=== PATIENT | male | born 1955 | race Caucasian/White ===

== ENCOUNTER 2021-02-09 12:34 | Emergency (ER) | payer BC ==
--- NOTE | 2021-02-09 13:57 | EDM.PDOC ---
ED HPI GENERAL MEDICAL PROBLEM - General Chief Complaint: Neurological Problem Stated Complaint: NUMBNESS LEFT SIDE OF BODY Time Seen by Provider: 02/09/21 13:30 Source of Information: Reports: Patient History Limitations: Reports: No Limitations - History of Present Illness INITIAL COMMENTS - FREE TEXT/NARRATIVE: 65 year old male with history of hyperlipidemia and hypertension presents to the ER due to numbness. He reports that 2 days ago he noted some left neck pain, went to his chiropractor appointment and did not get any relief, then today, in the last 6-8 hours noticed a progression of the numbness down his left neck, left arm, and left leg. Reports some "issues with my balance" and decreased vision to the right eye. Denies focal weakness, recent illness, recent tick bite, or other associated symptoms. Onset: Gradual Onset Date: 02/07/21 Location: Reports: Face, Upper Extremity, Left, Lower Extremity, Left Quality: Reports: Other (numbness) Improves with: Reports: None Worsens with: Reports: None Associated Symptoms: Reports: No Other Symptoms - Related Data Allergies Allergy/AdvReac Type Severity Reaction Status Date / Time No Known Allergies Allergy Verified 02/09/21 13:09 Home Meds: Home Meds Ezetimibe [Zetia] 10 mg PO DAILY 02/09/21 [History] FLUoxetine HCl [Prozac] 20 mg PO DAILY 02/09/21 [History] Losartan/Hydrochlorothiazide [Losartan-HCTZ 100-25 MG] 1 each PO DAILY 02/09/21 [History] Pantoprazole [ProTONIX] 40 mg PO BID 02/09/21 [History] Zolpidem [Ambien] 5 mg PO BEDTIME 02/09/21 [History] amLODIPine [Norvasc] 2.5 mg PO DAILY 02/09/21 [History] atorvaSTATin [Lipitor] 80 mg PO DAILY 02/09/21 [History] rOPINIRole [Requip] 0.25 mg PO BEDTIME 02/09/21 [History] Past Medical History Cardiovascular History: Reports: High Cholesterol, Hypertension Respiratory History: Reports: Sleep Apnea Gastrointestinal History: Reports: GERD Musculoskeletal History: Reports: Back Pain, Chronic, Fracture Psychiatric History: Reports: Anxiety, Depression Oncologic (Cancer) History: Reports: Other (See Below) Other Oncologic History: eye lid ca - Past Surgical History HEENT Surgical History: Reports: Eye Surgery, Tonsillectomy GI Surgical History: Reports: Colonoscopy, EGD Social & Family History - Tobacco Use Tobacco Use Status *Q: Never Tobacco User ED ROS GENERAL - Review of Systems Review Of Systems: See Below Constitutional: Reports: No Symptoms HEENT: Reports: Other (decreased vision to right eye) Respiratory: Reports: No Symptoms Cardiovascular: Reports: No Symptoms Endocrine: Reports: No Symptoms GI/Abdominal: Reports: No Symptoms : Reports: No Symptoms Musculoskeletal: Reports: Neck Pain Skin: Reports: No Symptoms Neurological: Reports: Numbness, Tingling, Gait Disturbance. Denies: Confusion, Dizziness, Headache, Weakness, Change in Speech Psychiatric: Reports: No Symptoms Hematologic/Lymphatic: Reports: No Symptoms Immunologic: Reports: No Symptoms ED EXAM, NEURO - Physical Exam Exam: See Below Text/Narrative:: Patient is calm, alert, and oriented resting on cart. Decreased sensation to left face, left arm, and leg leg with comparative sensation test. Spray Drier strength equal and strong bilaterally. No arm drift with Romberg test, or gaze deficit. No focal neuro weakness upon exam. Speech is clear. No facial droop. Respirations regular and non labored. skin warm and non labored. Exam Limited By: No Limitations General Appearance: Alert, WD/WN, No Apparent Distress Head Exam: Atraumatic Neck: Normal Inspection Respiratory/Chest: No Respiratory Distress Cardiovascular: Normal Peripheral Pulses, Regular Rate, Rhythm GI/Abdominal: Soft, Non-Tender Neurological: Alert, Abnormal Gait, Abnormal Sensation, Other (numbness and tingling to left face, arm and leg. No weakness, no drift, no neglect. ) Extremities: Normal Inspection, Normal Range of Motion, Other (numbness to left arm and left leg) Psychiatric: Normal Affect, Normal Mood Skin Exam: Warm, Dry Course - Vital Signs Text/Narrative:: CT head and Angio head ordered due to acute Neuro symptoms. Patient agrees to plan of care at this time. Last Recorded V/S: Last Vital Signs Temp 36.5 C 02/09/21 13:24 Pulse 69 02/09/21 13:24 Resp 16 02/09/21 13:24 BP 166/101 H 02/09/21 13:24 Pulse Ox 98 02/09/21 13:24 - Orders/Labs/Meds Orders: Active Orders 24 hr Category Date Time Status HUMAN GRANULOCYTIC MARTINEZ-HGE Stat Lab 02/09/21 15:24 Ordered LYME, TOTAL AB TEST/REFLEX Stat Lab 02/09/21 15:24 Ordered Labs: Laboratory Tests 02/09/21 02/09/21 02/09/21 Range/Units 13:52 13:52 13:52 WBC 5.3 (4.5-11.0) K/uL RBC 4.87 (4.30-5.90) M/uL Hgb 13.5 (12.0-15.0) g/dL Hct 41.5 (40.0-54.0) % MCV 85 (80-98) fL MCH 28 (27-31) pg MCHC 33 (32-36) % Plt Count 252 (150-400) K/uL Neut % (Auto) 66.6 H (36-66) % Lymph % (Auto) 17.5 L (24-44) % [place] % (Auto) 14.3 H (2-6) % Eos % (Auto) 1.0 L (2-4) % Baso % (Auto) 0.6 (0-1) % Sodium 141 (140-148) mmol/L Potassium 4.5 (3.6-5.2) mmol/L Chloride 104 (100-108) mmol/L Carbon Dioxide 24 (21-32) mmol/L Anion Gap 13.3 (5.0-14.0) mmol/L BUN 29 H (7-18) mg/dL Creatinine 1.1 (0.8-1.3) mg/dL Est Cr Clr Drug Dosing 74.46 mL/min Estimated GFR (MDRD) > 60 (>60) Glucose 85 (74-106) mg/dL Calcium 8.4 L (8.5-10.1) mg/dL Total Bilirubin 0.6 (0.2-1.0) mg/dL AST 23 (15-37) U/L ALT 35 (12-78) U/L Alkaline Phosphatase 72 (46-116) U/L C-Reactive Protein 0.31 H (0.0-0.3) mg/dL Total Protein 6.8 (6.4-8.2) g/dL Albumin 3.7 (3.4-5.0) g/dL Globulin 3.1 (2.3-3.5) g/dL Albumin/Globulin Ratio 1.2 (1.2-2.2) Meds: Medications Discontinued Medications Generic Name Dose Route Start Last Admin Trade Name Freq PRN Reason Stop Dose Admin Sodium Chloride 100 mls @ 4 mls/sec 02/09/21 14:15 Normal Saline IV 02/09/21 14:16 ASDIRECTED JAILYN Iopamidol 100 ml 02/09/21 14:15 Iopamidol 755 Mg/Ml 100 Ml Bottle IV 02/09/21 14:16 . DIRECTED JAILYN Sodium Chloride 10 ml 02/09/21 14:03 Sodium Chloride 0.9% 10 Ml Syringe FLUSH 02/09/21 14:04 ONETIME PRN per radiology protocol - Re-Assessments/Exams Free Text/Narrative Re-Assessment/Exam: discussed with patient his care options and opted for evaluation of tick panel without treatment today, will decide on treatment when results come back. Discussed that he should follow up if symptoms dont improve or if they get worse and the potential future need for a MRI. Patient agrees with this plan of care. 02/09/21 15:35 Departure - Departure Time of Disposition: 15:45 Disposition: Home, Self-Care 01 Condition: Good Clinical Impression: Paresthesia of left upper and lower extremity, Facial paresthesia - Discharge Information Instructions: Paresthesia Referrals: PCP,None [Primary Care Provider] - Forms: ED Department Discharge Care Plan Goals: Your CT and Angiogram of the head came back normal. Recommend rest and monitoring symptoms over the weekend. Return to the ER if worsening weakness/ numbness to left side, facial droop, inability to close eyelid, new vision changes, difficulty with speech, or other new or worsening symptoms that are concerning to you. We will wait for your tick panel results and could consider returning for MRI on friday if symptoms are worse or not improving. Sepsis Event Note (ED) - Evaluation Sepsis Screening Result: No Definite Risk - Focused Exam Vital Signs: Vital Signs Temp Pulse Resp BP Pulse Ox 02/09/21 13:24 36.5 C 69 16 166/101 H 98 02/09/21 13:02 36.5 C 69 16 166/101 H 98 - My Orders Last 24 Hours: My Active Orders 02/09/21 15:24 HUMAN GRANULOCYTIC MARTINEZ-H[facility] Stat LYME, TOTAL AB TEST/REFLEX Stat - Assessment/Plan Last 24 Hours: My Active Orders 02/09/21 15:24 HUMAN GRANULOCYTIC MARTINEZ-HGE Stat LYME, TOTAL AB TEST/REFLEX Stat
[2021-02-09] MEDS ORDERED: Sodium Chloride 0.9% 10 ML Syringe FLUSH PRN (14:03)
[2021-02-09] MEDS ORDERED: Iopamidol 755 Mg/ML 100 ML Bottle IV SCH (14:15)
[2021-02-09] MEDS ORDERED: Sodium Chloride 0.9% 100 ML IV SCH (14:15)
--- NOTE | 2021-02-09 15:10 | CT ---
Head wo Cont CLINICAL HISTORY: Numbness and weakness COMPARISON: None TECHNIQUE: Transverse scans were obtained from the base of the skull through the vertex without IV contrast on a multislice, multidetector CT scanner. Auto dosage reduction and iterative reconstruction techniques employed. FINDINGS: No focal abnormal parenchymal density is identified.. There is no mass effect, hemorrhage, or extraaxial collection. The basal cisterns and sulci over the convexities are mildly prominent. The ventricles are prominent for age. There is ethmoid sinusitis IMPRESSION: No focal lesion mass effect or hemorrhage Mild ventricular prominence. This may represent some atrophy with central prominence. Normal pressure hydrocephalus is felt less likely. Ethmoid sinusitis
--- NOTE | 2021-02-09 15:15 | CT ---
Ang Head CLINICAL HISTORY: Numbness and weakness. COMPARISON: None TECHNIQUE: Multiple volume rendered and MIP 3D reconstructions were generated from source images obtained on a spiral scanner before and after intravenous iodinated contrast enhancement Auto dosage reduction and iterative reconstruction techniques employed. FINDINGS: Internal carotid arteries: Normal course and contour Anterior cerebral arteries: Normal course and contour. The anterior communicating artery is patent Middle cerebral arteries: Normal course and contour Posterior cerebral arteries: Normal course and contour. The posterior communicating arteries are not visualized Vertebral/basilar arteries: Normal course and caliber IMPRESSION: Essentially negative CTA brain
[2021-02-14 09:13] LABS: LYME IGG/IGM AB <0.91 ISR (0.00-0.90)
== END 2021-02-09 15:45 | disposition home or self-care (01) ==
LOC: JP.ED 12:34
DX: R20.2 Paresthesia of skin (principal); E78.00 Pure hypercholesterolemia, unspecified; I10 Essential (primary) hypertension; Z79.899 Other long term (current) drug therapy
CPT/HCPCS: 36415; 70450; 70450-26; 70496; 70496-26; 80053; 85025; 86140; 86666; 99284-25

== ENCOUNTER 2022-01-11 11:10 | Emergency (ER) | payer MEDICARE, BC | END 2022-01-11 12:43 | disposition home or self-care (01) | LOC: JP.ED 11:10 | DX: R07.89 Other chest pain (principal); E78.00 Pure hypercholesterolemia, unspecified; I10 Essential (primary) hypertension; K21.9 Gastro-esophageal reflux disease without esophagitis; Z79.899 Other long term (current) drug therapy | CPT/HCPCS: 99282; 99283 ==

== ENCOUNTER 2023-02-18 08:35 | Emergency (ER) | payer MEDICARE, BC ==
[2023-02-18] MEDS ORDERED: Ketorolac 30 MG/ML SDV IM ONE (09:25)
== END 2023-02-18 10:39 | disposition home or self-care (01) ==
LOC: JP.ED 08:35
DX: S20.212A Contusion of left front wall of thorax, initial encounter (principal); S90.111A Contusion of right great toe without damage to nail, initial encounter; M10.9 Gout, unspecified; E78.00 Pure hypercholesterolemia, unspecified; I10 Essential (primary) hypertension; K21.9 Gastro-esophageal reflux disease without esophagitis; Z72.0 Tobacco use; Z79.899 Other long term (current) drug therapy; W01.0XXA Fall on same level from slipping, tripping and stumbling without subsequent striking against object, initial encounter
CPT/HCPCS: 71101-26-LT; 71101-LT; 73660-26-T5; 73660-T5; 99283

== ENCOUNTER 2024-11-27 12:00 | Emergency (ER) | payer MEDICARE, BC ==
[2024-11-27] MEDS: Diphtheria,Pertussis(Acell),Tetanus Vaccine 0.5 ML Syringe IM ONE (12:43)
== END 2024-11-27 12:57 | disposition home or self-care (01) ==
LOC: JP.ED 12:00
DX: S51.812A Laceration without foreign body of left forearm, initial encounter (principal); I10 Essential (primary) hypertension; K21.9 Gastro-esophageal reflux disease without esophagitis; E78.00 Pure hypercholesterolemia, unspecified; Z79.899 Other long term (current) drug therapy; W45.8XXA Other foreign body or object entering through skin, initial encounter
CPT/HCPCS: 90471; 90715; 99282-25; 99283